=== PATIENT | male | born 1980 | race Caucasian/White ===

== ENCOUNTER 2020-02-09 15:07 | Outpatient (REF) | payer MEDICARE, SELFPAY | END 2020-02-09 15:08 | disposition home or self-care (01) | LOC: HO.LAB 15:07 | PROVIDERS: Visit Provider Internal Medicine | DX: Z20.828 Contact with and (suspected) exposure to other viral communicable diseases (principal) | CPT/HCPCS: C9803; U0003 ==

== ENCOUNTER 2021-02-19 14:32 | Emergency (ER) | payer MEDICARE, SELFPAY ==
--- NOTE | ~2021-02-19 | XR_ITS ---
EXAMINATION: XR CHEST CLINICAL INFORMATION: Chest pain COMPARISON: Chest x-ray 05/20/2017 TECHNIQUE: 2 views of the chest were obtained. FINDINGS: No significant abnormality is noted involving the heart, lungs, mediastinum, bony thorax or soft tissues. XR/XR chest 2V IMPRESSION: Unremarkable examination.
--- NOTE | 2021-02-19 14:42 | ECG_ITS ---
Test Reason : CHEST PAIN Blood Pressure : / mmHG Vent. Rate : 071 BPM Atrial Rate : 071 BPM P-R Int : 144 ms QRS Dur : 100 ms QT Int : 356 ms P-R-T Axes : 029 015 010 degrees QTc Int : 386 ms Normal sinus rhythm Incomplete right bundle branch block Borderline ECG When compared with ECG of 16-NOV-2019 17:50, Incomplete right bundle branch block is now Present Referred By: Delores Gil Electronically Signed By:REEMA DENNY
[2021-02-19 15:00] VITALS: BP 123/69; PULSE 71; RESP 18; TEMP 36.8; O2SAT 97; BMI 29.0
[2021-02-19 16:06] LABS: MANUAL DIFF FLAG NO
[2021-02-19 16:09] LABS: Basophils Absolute Auto 0.1 X10*3/uL (0.0-0.2); Basophils Percent Auto 0.6 % (0-2); Eosinophils Absolute Auto 0.3 X10*3/uL (0.0-0.4); Eosinophils Percent Auto 3.3 % (0-4); Hematocrit 42.5 % (42.0-52.0); Hemoglobin 14.6 g/dl (14.0-18.0); Imm Gran Abs Auto 0.02 X10*3/uL (0.00-0.03); Imm Gran Pct Auto 0.2 % (0.0-0.4); Lymphocytes Absolute Auto 2.2 X10*3/uL (1.2-4.9); Lymphocytes Percent Auto 23.5 % (20-40); Mean Corpuscular HGB Conc 34.4 g/dl (31.0-36.0); Mean Corpuscular Hemoglobin 31.4 pg (27.0-33.0); Mean Corpuscular Volume 91.4 fL (80.0-98.0); Mean Platelet Volume 11.7 fL (9.4-12.4); Monocytes Absolute Auto 0.7 X10*3/uL (0.1-1.2); Monocytes Percent Auto 7.7 % (2-11); Neutrophils Percent Auto 64.7 % (45-73); Platelet Count 248 X10*3/uL (160-400); Red Blood Count 4.65 X10*6/uL (4.60-5.80); White Blood Count 9.3 X10*3/uL (4.8-10.8)
[2021-02-19 16:25] LABS: Anion Gap 12 (12-20); Blood Urea Nitrogen 14 mg/dL (9-16); Calcium 9.6 mg/dL (8.4-10.2); Carbon Dioxide 26 mmol/L (22-29); Chloride 105 mmol/L (96-108); Creatinine Clr Calc Pharmacy 92.9; Estimated Glomerular Filt Rate > 60; Glucose Random 96 mg/dL (60-115); Potassium 4.1 mmol/L (3.3-5.1); Sodium 139 mmol/L (135-145)
[2021-02-19 16:28] LABS: Prothrombin Time 11.5 SEC (9.9-13.0)
[2021-02-19 16:29] LABS: Troponin-I High Sensitivity < 3.5 ng/L (<3.5-35.0)
[2021-02-19 16:31] LABS: D Dimer High Sensitivity < 150 NG/ML
== END 2021-02-19 19:45 | disposition left against medical advice (07) ==
PROVIDERS: Physician Assistant Medical; Emergency Provider Emergency Medicine
DX: R07.9 Chest pain, unspecified (principal)
CPT/HCPCS: 36415; 71046; 80048; 83735; 84484; 85025; 85379; 85610; 93005; 99283

== ENCOUNTER 2021-03-08 15:11 | Emergency (ER) | payer MEDICARE, SELFPAY ==
[2021-03-08 16:26] VITALS: BP 156/70; PULSE 86; RESP 12; TEMP 36.9; O2SAT 98; BMI 29.0
== END 2021-03-08 20:45 | disposition left against medical advice (07) ==
PROVIDERS: Emergency Provider Emergency Medicine
DX: R42 Dizziness and giddiness (principal)
CPT/HCPCS: 99281; 99282

== ENCOUNTER 2022-02-21 10:13 | Outpatient (REF) | payer MEDICARE, SELFPAY ==
[2022-02-21 10:25] LABS: MANUAL DIFF FLAG NO
--- NOTE | 2022-02-21 10:31 | ECG_ITS ---
Test Reason : M54.9 Dorsalgia Blood Pressure : / mmHG Vent. Rate : 085 BPM Atrial Rate : 071 BPM P-R Int : 138 ms QRS Dur : 098 ms QT Int : 364 ms P-R-T Axes : 069 034 021 degrees QTc Int : 433 ms Sinus rhythm with frequent Premature ventricular complexes Otherwise normal ECG When compared with ECG of 19-FEB-2021 14:44, Premature ventricular complexes are now Present Incomplete right bundle branch block is no longer Present Referred By: Lizz Solares Electronically Signed By:AGATA MARRERO MD
[2022-02-21 11:37] LABS: Basophils Absolute Auto 0.1 X10*3/uL (0.0-0.2); Basophils Percent Auto 0.8 % (0-2); Eosinophils Absolute Auto 0.5 X10*3/uL (0.0-0.4); Eosinophils Percent Auto 5.3 % (0-4); Hematocrit 47.6 % (42.0-52.0); Hemoglobin 15.9 g/dl (14.0-18.0); Imm Gran Abs Auto 0.05 X10*3/uL (0.00-0.03); Imm Gran Pct Auto 0.6 % (0.0-0.4); Lymphocytes Absolute Auto 2.5 X10*3/uL (1.2-4.9); Lymphocytes Percent Auto 29.2 % (20-40); Mean Corpuscular HGB Conc 33.4 g/dl (31.0-36.0); Mean Corpuscular Hemoglobin 30.6 pg (27.0-33.0); Mean Corpuscular Volume 91.5 fL (80.0-98.0); Mean Platelet Volume 12.4 fL (9.4-12.4); Monocytes Absolute Auto 0.6 X10*3/uL (0.1-1.2); Monocytes Percent Auto 6.7 % (2-11); Neutrophils Absolute Auto 4.9 x10*3/uL (2.0-8.3); Neutrophils Percent Auto 57.4 % (45-73); Platelet Count 287 X10*3/uL (160-400); Red Cell Distribution Width 13.2 % (11.0-16.0); White Blood Count 8.6 X10*3/uL (4.8-10.8)
[2022-02-21 13:39] LABS: Alanine Aminotransferase 23 U/L (0-40); Albumin Level 4.7 g/dL (3.5-5.0); Alkaline Phosphatase 69 U/L (39-117); Anion Gap 11 (12-20); Aspartate Amino Transferase 22 U/L (5-37); Bilirubin Total 0.4 mg/dL (0.0-1.0); Blood Urea Nitrogen 15 mg/dL (9-16); Calcium 9.4 mg/dL (8.4-10.2); Carbon Dioxide 27 mmol/L (22-29); Chloride 108 mmol/L (96-108); Cholesterol 199 mg/dL; Estimated Glomerular Filt Rate > 60; Glucose Fasting 98 mg/dL (60-99); HDL Cholesterol 37 mg/dL; LDL Cholesterol Calculated 137 mg/dl; Potassium 4.7 mmol/L (3.3-5.1); Sodium 141 mmol/L (135-145); TSH reflex Free T4 1.14 uIU/mL (0.32-4.0); Total Protein 7.4 g/dL (6.5-8.0); Triglycerides 125 mg/dL; Vitamin D 25-OH Total 16.7 ng/mL (>30)
[2022-02-21 13:50] LABS: Folate 8.6 ng/mL (> or = 4.0); Vitamin B12 454 pg/mL (200-900)
== END 2022-02-21 10:14 | disposition home or self-care (01) ==
LOC: HO.LAB 10:13
PROVIDERS: PCP Nurse Practitioner Family; Visit Provider Nurse Practitioner Family
DX: M54.9 Dorsalgia, unspecified (principal); Z76.89 Persons encountering health services in other specified circumstances
CPT/HCPCS: 36415; 80053; 80061; 82306; 82607; 82746; 84443; 85025; 93005

== ENCOUNTER 2022-09-11 13:57 | Outpatient (REF) | payer MEDICARE, SELFPAY ==
--- NOTE | 2022-09-11 14:03 | ECG_ITS ---
Test Reason : R07.9 Chest pain Blood Pressure : / mmHG Vent. Rate : 071 BPM Atrial Rate : 071 BPM P-R Int : 130 ms QRS Dur : 100 ms QT Int : 370 ms P-R-T Axes : 051 032 012 degrees QTc Int : 402 ms Normal sinus rhythm with sinus arrhythmia Normal ECG When compared with ECG of 21-FEB-2022 10:36, Premature ventricular complexes are no longer Present Referred By: Lizz Solares Electronically Signed By:REEMA DENNY
[2022-09-11 16:21] LABS: Cholesterol 200 mg/dL; HDL Cholesterol 38 mg/dL; LDL Cholesterol Calculated 125 mg/dl; Triglycerides 185 mg/dL
[2022-09-11 16:35] LABS: Vitamin D 25-OH Total 24.5 ng/mL (>30)
== END 2022-09-11 13:58 | disposition home or self-care (01) ==
LOC: HO.LAB 13:57
PROVIDERS: Visit Provider Nurse Practitioner Family
DX: R07.9 Chest pain, unspecified (principal); E78.9 Disorder of lipoprotein metabolism, unspecified; E55.9 Vitamin D deficiency, unspecified
CPT/HCPCS: 36415; 80061; 82306; 93005

== ENCOUNTER 2023-04-25 08:42 | Outpatient (AMB) | payer MEDICARE, SELFPAY ==
--- NOTE | 2023-04-25 08:54 | A.OFFVIS_ITS ---
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 Patient reports off and on sharp pain for many months. He states that he gets sharp pains randomly through out the days. 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 Patient states that his pain stays in the lower back area. He is having concerns of neck/shoulder pain that has been going on for a couple months. 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 Comes out of no where, big stabbing/sharp pain, hot/cold, across lower back. Does not radiate to legs. No numbness. No weakness. No bladder/bowel changes. Denies other back injuries. [facility] Surgical History No pertinent past surgical history Family History Mother Dementia CVA (cerebral vascular accident) Father Medical history unknown Social History Housing: House Patient Tobacco Use Status: Former Tobacco user e-Cigarette/Vaping Use: Never Used service: No Current occupational status: employed Current occupation: [employer] Cognitive needs: No Hearing needs: No Vision needs: No Review of Systems Const All systems reviewed & are unremarkable except as noted in HPI and below Physical Exam Vital Signs: BMI result Body Mass Index 28.9 Constitutional: Patient appears to be in no acute distress, well nourished and well developed. Patient was appropriately conversant and oriented. Good historian. MSK: No specific abnormalities found on inspection of the spine and all extremities. Tightness noted on upper trapezius and rhomboids, left. No pain with palpation over the lumbar area. No specific tenderness on facet or spinous processes or SI joints. No GT tenderness. Cervical range of motion was full. Lumbar ROM was full. Bilateral hip, knee and ankle ROM WNL. No ligamentous laxity or crepitance. No increased effusion. Straight-leg raising test negative. FABERE test negative. Strength is 5/5 in all muscle groups tested. No increased tone noted. Neurological: Neurologic examination of the upper and lower extremities was nonfocal with intact sensation, muscle stretch reflexes and without focal motor deficits . Pyle?s negative bilaterally. Babinski was down going bilaterally. Clonus was negative. Gait is non-antalgic without loss of balance. Results Reviewed Results Reviewed: I independently reviewed the results of the following: Lumbar x-rays did not show any disc space narrowing, question mild endplates spurring. I reviewed records from the following: PCP Assessment & Plan Assessment & Plan (1) Myofascial pain: Code(s): M79.18 - Myalgia, other site Plan He was referred for lower back pain but he also has left upper back pain. There was no sign of cervical or lumbar radiculopathy or myelopathy on exam. Suspect myofascial pain. No signs of rotator cuff issue on shoulder as well. Sending him back for cervical spine and left shoulder x-rays. Highly recommend starting physical therapy to work on myofascial release, both for upper and lower back, trapezius and rhomboids. Patient agreeable to start. Referral placed. Assessment and plan discussed with patient, and patient was agreeable. All questions were answered thoroughly. Follow-up 4-6 weeks, after PT. Call sooner if needed. Wilma Moulton MD, SHAHAB Board Certified, [place] Board [employer] and Rehabilitation (ABPMR) Board Certified, [place] Board [employer] Electrodiagnostic Medicine (ABEM) Orders: Orders XR lumbar spine 2-3V Today M54.9 - Dorsalgia, unspecified XR shoulder LT min 2V Today F32.A - Depression, unspecified, F41.9 - Anxiety disorder, unspecified, M25.519 - Pain in unspecified shoulder, M79.18 - Myalgia, other site XR cervical spine 3V Today F32.A - Depression, unspecified, F41.9 - Anxiety disorder, unspecified, M25.519 - Pain in unspecified shoulder, M79.18 - Myalgia, other site PT Evaluation and Treatment Today F32.A - Depression, unspecified, F41.9 - Anxiety disorder, unspecified, M25.519 - Pain in unspecified shoulder, M79.18 - Myalgia, other site Coding Level of Care Code New Pt Level 4 (32232) Diagnoses Myofascial pain M79.18
[2023-04-25 08:58] VITALS: BMI 28.9
== END 2023-04-25 09:48 | disposition home or self-care (01) ==
LOC: HO.HOS 08:42
PROVIDERS: Visit Provider Physical Medicine & Rehabilitation
DX: M79.18 Myalgia, other site (principal)
CPT/HCPCS: 99204

== ENCOUNTER 2023-04-25 09:19 | Outpatient (REF) | payer MEDICARE, MEDICAID, SELFPAY ==
--- NOTE | ~2023-04-25 | XR_ITS ---
EXAMINATION: XR SHOULDER, LEFT CLINICAL INFORMATION: Pain in unspecified shoulder COMPARISON: None available. TECHNIQUE: AP neutral and scapular Y views of the left shoulder. FINDINGS: The bones are intact. No fracture. Glenohumeral and acromioclavicular alignment is anatomic with normal joint space. Small nonspecific cystic focus is seen within the distal clavicle. No abnormal soft tissue calcifications. XR/XR shoulder LT min 2V IMPRESSION: No acute bony abnormality.
--- NOTE | ~2023-04-25 | XR_ITS ---
EXAMINATION: XR CERVICAL SPINE CLINICAL INFORMATION: Pain in unspecified shoulder COMPARISON: Cervical spine 09/06/2006 TECHNIQUE: 4 views of the cervical spine were obtained. FINDINGS: The tip of the odontoid is obscured on the open-mouth view. There is no fracture or subluxation. Prevertebral soft tissues are within normal limits. There is straightening of the usual cervical lordosis which can be seen with muscle spasm or due to patient positioning. There is moderate disc space narrowing with marginal osteophyte formation at C6-C7. XR/XR cervical spine 3V IMPRESSION: 1. Degenerative disc disease at C6-C7. 2. Straightening of the usual cervical lordosis which can be seen with muscle spasm or due to patient positioning.
--- NOTE | ~2023-04-25 | XR_ITS ---
EXAMINATION: XR LUMBOSACRAL SPINE CLINICAL INFORMATION: Dorsalgia. COMPARISON: Lumbar spine radiographs dated 04/06/2018. TECHNIQUE: AP and lateral views of the lumbar spine and lateral view of the lumbosacral junction. FINDINGS: Vertebral body heights and alignment are normal. The lumbar disc spaces are well-maintained. No acute fracture or spondylolisthesis is seen. There is multi-level mild anterior lumbar spondylosis. The posterior elements are intact. The paravertebral soft tissues are unremarkable. XR/XR lumbar spine 2-3V IMPRESSION: 1. No acute fracture or spondylolisthesis is seen. 2. The lumbar disc spaces are well-maintained. 3. There is multi-level mild lumbar spondylosis.
== END 2023-04-25 09:20 | disposition home or self-care (01) ==
LOC: HO.HOSX 09:19
PROVIDERS: Visit Provider Physical Medicine & Rehabilitation
DX: M54.9 Dorsalgia, unspecified (principal); M25.512 Pain in left shoulder; M79.18 Myalgia, other site; F41.9 Anxiety disorder, unspecified; F32.A Depression, unspecified
CPT/HCPCS: 72040; 72100; 73030; 99202

== ENCOUNTER 2023-05-16 11:35 | Outpatient (AMB) | payer MEDICARE, MEDICAID, SELFPAY ==
--- NOTE | 2023-05-16 09:59 | A.OFFVIS_ITS ---
Intake Intake Visit Reasons: OV-lower back pain, ?MRI Intake Note: Turner is a 43 year old male who presents to the office today for an office visit for lower back pain, ? MRI. Pt states this pain has been going on for about 2 months. Pt denies any injury to his back. He states he has pain more on his left side of his neck and back. He states sometimes he will also have sharp stabbing pain in his neck that radiates down his left arm. He also states that his left arm gets tingling sensations. He states he is currently in PT and has had 1 PT appt a few days ago. 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 Comes out of no where, big stabbing/sharp pain, hot/cold, across lower back. Does not radiate to legs. No numbness. No weakness. No bladder/bowel changes. Denies other back injuries. Patient asked to be seen today. Asking about ordering an MRI. He has gone to only one PT appointment/evaluation. He denies any change or worsening in his symptoms. Continues to have neck pain, left sided, going to left shoulder. Lower back pain, going to left leg. Denies numbness or weakness. No change in bladder/bowel. No nweakness. [facility] Surgical History No pertinent past surgical history Family History Mother Dementia CVA (cerebral vascular accident) Father Medical history unknown Social History Housing: House Patient Tobacco Use Status: Former Tobacco user e-Cigarette/Vaping Use: Never Used service: No Current occupational status: employed Current occupation: [employer] Cognitive needs: No Hearing needs: No Vision needs: No Physical Exam Constitutional: Patient appears to be in no acute distress, well nourished and well developed. Patient was appropriately conversant and oriented. Good historian. MSK: No specific abnormalities found on inspection of the spine and all extremities. Tightness noted on upper trapezius and rhomboids, left. Palpable small lymph node on right lateral neck, less than 0.5 cm. No pain with palpation over the lumbar area. No specific tenderness on facet or spinous processes or SI joints. No GT tenderness. Cervical range of motion was full. Lumbar ROM was full. Bilateral hip, knee and ankle ROM WNL. No ligamentous laxity or crepitance. No increased effusion. Strength is 5/5 in all muscle groups tested. No increased tone noted. Neurological: Neurologic examination of the upper and lower extremities was nonfocal with int act sensation, muscle stretch reflexes and without focal motor deficits . Pyle?s negative bilaterally. Babinski was down going bilaterally. Clonus was negative. Gait is non-antalgic without loss of balance. Results Reviewed Results Reviewed: Ordering Physician: Wilma Martin Date of Service: 04/25/23 Procedure(s): XR lumbar spine 2-3V Accession Number(s): [id number] cc: Wilma Martin~ EXAMINATION: XR LUMBOSACRAL SPINE CLINICAL INFORMATION: Dorsalgia. COMPARISON: Lumbar spine radiographs dated 04/06/2018. TECHNIQUE: AP and lateral views of the lumbar spine and lateral view of the lumbosacral junction. FINDINGS: Vertebral body heights and alignment are normal. The lumbar disc spaces are well-maintained. No acute fracture or spondylolisthesis is seen. There is multi-level mild anterior lumbar spondylosis. The posterior elements are intact. The paravertebral soft tissues are unremarkable. XR/XR lumbar spine 2-3V IMPRESSION: 1. No acute fracture or spondylolisthesis is seen. 2. The lumbar disc spaces are well-maintained. 3. There is multi-level mild lumbar spondylosis. Ordering Physician: Wilma Martin Date of Service: 04/25/23 Procedure(s): XR cervical spine 3V Accession Number(s): [id number] cc: Wilma Martin~ EXAMINATION: XR CERVICAL SPINE CLINICAL INFORMATION: Pain in unspecified shoulder COMPARISON: Cervical spine 09/06/2006 TECHNIQUE: 4 views of the cervical spine were obtained. FINDINGS: The tip of the odontoid is obscured on the open-mouth view. There is no fracture or subluxation. Prevertebral soft tissues are within normal limits. There is straightening of the usual cervical lordosis which can be seen with muscle spasm or due to patient positioning. There is moderate disc space narrowing with marginal osteophyte formation at C6-C7. XR/XR cervical spine 3V IMPRESSION: 1. Degenerative disc disease at C6-C7. 2. Straightening of the usual cervical lordosis which can be seen with muscle spasm or due to patient positioning. Ordering Physician: Wilma Martin Date of Service: 04/25/23 Procedure(s): XR shoulder LT min 2V Accession Number(s): [id number] cc: Wilma Martin~ EXAMINATION: XR SHOULDER, LEFT CLINICAL INFORMATION: Pain in unspecified shoulder COMPARISON: None available. TECHNIQUE: AP neutral and scapular Y views of the left shoulder. FINDINGS: The bones are intact. No fracture. Glenohumeral and acromioclavicular alignment is anatomic with normal joint space. Small nonspecific cystic focus is seen within the distal clavicle. No abnormal soft tissue calcifications. XR/XR shoulder LT min 2V IMPRESSION: No acute bony abnormality. Assessment & Plan Assessment & Plan (1) Myofascial pain: Code(s): M79.18 - Myalgia, other site (2) Cervical spondylosis: Code(s): M47.812 - Spondylosis without myelopathy or radiculopathy, cervical region (3) Chronic back pain: Code(s): M54.9 - Dorsalgia, unspecified; G89.29 - Other chronic pain Plan Today no sign of cervical or lumbar radiculopathy or myelopathy on exam. No signs of rotator cuff issue on shoulder as well. Encouraged to continue physical therapy to work on myofascial release, both for upper and lower back, trapezius and rhomboids. Patient agreeable. Next appointment on June 05. If not better, we will consider further imaging as necessary. Discussed what to watch out for. Can call if symptoms worsen. Assessment and plan discussed with patient, and patient was agreeable. All questions were answered thoroughly. Wilma Moulton MD, SHAHAB Board Certified, [place] Board of Physical Medicine and Rehabilitation (ABPMR) Board Certified, [place] Board of Electrodiagnostic Medicine (ABEM) Coding Level of Care Code Est Pt Level 3 (42098) Diagnoses Myofascial pain M79.18 Cervical spondylosis M47.812 Chronic back pain M54.9; G89.29
== END 2023-05-16 12:04 | disposition home or self-care (01) ==
LOC: HO.HOS 11:36
PROVIDERS: Visit Provider Physical Medicine & Rehabilitation
DX: M79.18 Myalgia, other site (principal); M47.812 Spondylosis without myelopathy or radiculopathy, cervical region; M54.9 Dorsalgia, unspecified; G89.29 Other chronic pain
CPT/HCPCS: 99213

== ENCOUNTER → 2023-05-16 11:35 | Outpatient (BNVA) | payer MEDICARE, SELFPAY | PROVIDERS: Visit Provider Physical Medicine & Rehabilitation | DX: M79.18 Myalgia, other site (principal); M47.812 Spondylosis without myelopathy or radiculopathy, cervical region; M54.9 Dorsalgia, unspecified; G89.29 Other chronic pain | CPT/HCPCS: 99212 ==

== ENCOUNTER 2023-06-06 08:30 | Outpatient (AMB) | payer MEDICARE, SELFPAY ==
--- NOTE | 2023-06-06 08:54 | A.OFFVIS_ITS ---
Intake Intake Visit Reasons: OV-lower back pain-follow up Intake Note: Turner is a 43 year old male who presents to the office today for a follow up for his lower back pain. Patient reports that he is doing well in P.T. He states that he still has discomfort and mild pain in his lower back and neck. 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 Comes out of no where, big stabbing/sharp pain, hot/cold, across lower back. Does not radiate to legs. No numbness. No weakness. No bladder/bowel changes. Denies other back injuries. He has been going to PT without much relief. Neck pain has continued to be bothersome. Continues to have neck pain, left sided, going to left shoulder. Lower back pain, going to left leg. Denies numbness or weakness. No change in bladder/bowel. No weakness. [facility] Surgical History No pertinent past surgical history Family History Mother Dementia CVA (cerebral vascular accident) Father Medical history unknown Social History Housing: House Patient Tobacco Use Status: Former Tobacco user e-Cigarette/Vaping Use: Never Used service: No Current occupational status: employed Current occupation: [employer] Cognitive needs: No Hearing needs: No Vision needs: No Physical Exam Constitutional: Patient appears to be in no acute distress, well nourished and well developed. Patient was appropriately conversant and oriented. Good historian. MSK: No specific abnormalities found on inspection of the spine and all extremities. Tightness noted on upper trapezius and rhomboids, left. No pain with palpation over the lumbar area. No specific tenderness on facet or spinous processes or SI joints. No GT tenderness. Cervical range of motion was full. Lumbar ROM was full. Bilateral hip, knee and ankle ROM WNL. No ligamentous laxity or crepitance. No increased effusion. Strength is 5/5 in all muscle groups tested. No increased tone noted. Neurological: Neurologic examination of the upper and lower extremities was nonfocal with intact sensation, muscle stretch reflexes and without focal motor deficits . Pyle?s negative bilaterally. Babinski was down going bilaterally. Clonus was negative. Gait is non-antalgic without loss of balance. Results Reviewed Results Reviewed: Ordering Physician: Wilma Martin Date of Service: 04/25/23 Procedure(s): XR lumbar spine 2-3V Accession Number(s): [id number] cc: Wilma Martin~ EXAMINATION: XR LUMBOSACRAL SPINE CLINICAL INFORMATION: Dorsalgia. COMPARISON: Lumbar spine radiographs dated 04/06/2018. TECHNIQUE: AP and lateral views of the lumbar spine and lateral view of the lumbosacral junction. FINDINGS: Vertebral body heights and alignment are normal. The lumbar disc spaces are well-maintained. No acute fracture or spondylolisthesis is seen. There is multi-level mild anterior lumbar spondylosis. The posterior elements are intact. The paravertebral soft tissues are unremarkable. XR/XR lumbar spine 2-3V IMPRESSION: 1. No acute fracture or spondylolisthesis is seen. 2. The lumbar disc spaces are well-maintained. 3. There is multi-level mild lumbar spondylosis. Ordering Physician: Wlima Martin Date of Service: 04/25/23 Procedure(s): XR cervical spine 3V Accession Number(s): [id number] cc: Wilma Martin~ EXAMINATION: XR CERVICAL SPINE CLINICAL INFORMATION: Pain in unspecified shoulder COMPARISON: Cervical spine 09/06/2006 TECHNIQUE: 4 views of the cervical spine were obtained. FINDINGS: The tip of the odontoid is obscured on the open-mouth view. There is no fracture or subluxation. Prevertebral soft tissues are within normal limits. There is straightening of the usual cervical lordosis which can be seen with muscle spasm or due to patient positioning. There is moderate disc space narrowing with marginal osteophyte formation at C6-C7. XR/XR cervical spine 3V IMPRESSION: 1. Degenerative disc disease at C6-C7. 2. Straightening of the usual cervical lordosis which can be seen with muscle spasm or due to patient positioning. Ordering Physician: Wilma Martin Date of Service: 04/25/23 Procedure(s): XR shoulder LT min 2V Accession Number(s): [id number] cc: Wilma Martin~ EXAMINATION: XR SHOULDER, LEFT CLINICAL INFORMATION: Pain in unspecified shoulder COMPARISON: None available. TECHNIQUE: AP neutral and scapular Y views of the left shoulder. FINDINGS: The bones are intact. No fracture. Glenohumeral and acromioclavicular alignment is anatomic with normal joint space. Small nonspecific cystic focus is seen within the distal clavicle. No abnormal soft tissue calcifications. XR/XR shoulder LT min 2V IMPRESSION: No acute bony abnormality. Assessment & Plan Assessment & Plan (1) Radiculitis of left cervical region: Code(s): M54.12 - Radiculopathy, cervical region (2) Cervical spondylosis: Code(s): M47.812 - Spondylosis without myelopathy or radiculopathy, cervical region (3) Chronic back pain: Code(s): M54.9 - Dorsalgia, unspecified; G89.29 - Other chronic pain Qualifiers: Sciatica presence: without sciatica Back pain location: low back pain Back pain laterality: midline Qualified Code(s): M54.50 - Low back pain, unspecified; G89.29 - Other chronic pain (4) Myofascial pain: Code(s): M79.18 - Myalgia, other site Plan Main concern is left cervical radiculitis. Has not improved since PT. Patient had undergone adequate conservative management including [PT] without improvement of condition. It would be reasonable to obtain further imaging such as MRI cervical spine. An MRI would help rule out any serious condition, guide treatment and assess prognosis for recovery. Specifically ruling out left C5-6 disc herniation. Recommendations for injection to follow after MRI. Assessment and plan discussed with patient, and patient was agreeable. All questions were answered thoroughly. Wilma Moulton MD, SHAHAB Board Certified, [place] Board [employer] and Rehabilitation (ABPMR) Board Certified, [place] Board [employer] Electrodiagnostic [employer] (ABEM) Orders: Orders MR cervical spine wo con Today M47.812 - Spondylosis without myelopathy or radiculopathy, cervical region, M54.12 - Radiculopathy, cervical region Coding Level of Care Code Est Pt Level 4 (30520) Diagnoses Radiculitis of left cervical region M54.12 Cervical spondylosis M47.812 Chronic midline low back pain without sciatica M54.50; G89.29 Sciatica presence: without sciatica Back pain location: low back pain Back pain laterality: midline Myofascial pain M79.18
== END 2023-06-06 09:12 | disposition home or self-care (01) ==
PROVIDERS: Visit Provider Physical Medicine & Rehabilitation
DX: M54.12 Radiculopathy, cervical region (principal); M47.812 Spondylosis without myelopathy or radiculopathy, cervical region; M54.50 Low back pain, unspecified; G89.29 Other chronic pain; M79.18 Myalgia, other site
CPT/HCPCS: 99214

== ENCOUNTER → 2023-06-06 08:30 | Outpatient (BNVA) | payer MEDICARE, MEDICAID, SELFPAY | PROVIDERS: Visit Provider Physical Medicine & Rehabilitation | DX: M47.22 Other spondylosis with radiculopathy, cervical region (principal); M54.50 Low back pain, unspecified; G89.29 Other chronic pain; M79.18 Myalgia, other site | CPT/HCPCS: 99212 ==

== ENCOUNTER 2023-06-06 11:00 | Outpatient (RCR) | payer MEDICARE, SELFPAY ==
--- NOTE | 2023-05-14 11:02 | MHC.PT.EP ---
[facility] [place] Office [place] Office [place] Office [address] Mj Gooden [address] [phone] F: [phone] F: [phone] F: [phone] F: [phone] Physical Therapy Plan of Care Date of Evaluation: 05/14/23 Date of Surgery: NA Diagnosis: Pain in unspecified shoulder Myalgia, other site Anxiety disorder, unspecified Assessment: Turner is a 43 year old male who is referred to PT for Pain in unspecified shoulder, Myalgia, other site, Anxiety disorder, unspecified . He reports of having sudden onset of pain on the L side of the neck about 4 months back. He denies any trauma or falls. In addition he also reports of having pain in R side and per pt the pain radiates to his head and eyes and and down L UE. On PT examination he presents with TTP over L UT, L levator scap, L shoulder posterior joint line, 8/10 pain in neck with sitting, driving, L SL, decreased cervical ROM, pain with shoulder ROM, decreased cervical muscle strength, and altered posture. He lives with family. He is independent with all ADLS but has pain with them. 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 He would benefit from skilled PT to address the aforementioned impairments and improve tolerance to functional activities. Frequency and Duration: The patient will be seen 2/week for 5 weeks. Short Term Goals: 1. Pt will have 50% decrease in pain which will enable him to sleep through the night in 2 weeks. 2. Pt will be able to move his neck through all planes of motion without pain which will enable him to use is upper body for dressing without pain in 3 weeks. Senior Group Manager Goals: 1. Pt will demonstrate an increase in muscle strength by 1 grade and good awareness of sitting posture which will enable him to get through his work without pain in 5 weeks. 2. Pt will be independent with all HEP for symptom management and maintenance following d/c in 5 weeks. Treatment Plan: Modalities to reduce pain, spasms and effusion. Manual therapy to restore motion and function. Therapeutic exercise to improve strength and flexibility. Neuromuscular re-education for posture and balance. Therapeutic activities to return to functional activities of daily living. Electronically signed by: Nelida Jones PT DPT Please sign and return to therapist. Thank you for your referral.
--- NOTE | 2023-08-17 09:33 | MHC.PT.DC ---
[facility] [place] Office [place] Office [place] Office [address] Mj Gooden [address] [phone] F: [phone] F: [phone] F: [phone] F: [phone] Physical Therapy Discharge Report Diagnosis: Pain in unspecified shoulder Myalgia, other site Anxiety disorder, unspecified Date of Surgery: NA Date of Evaluation: 05/14/23 Date of Discharge: 08/17/23 Treatments to Date: 7 Cancellations to Date: 1 No Shows to Date: 2 Discharge Status: Recommend MD Follow-up Discharge Summary: Per last treatment note on 06/06/23: Turner arrived stating his neck pain of something being pinched has been unchanged with PT. He followed with his physician prior to today's appointment and requested an MRI for his neck. Per pt he will be having any MRI for his neck sometime soon. He otherwise reports of feeling fine in his UE. He reports of having some relief in UE symptoms with strength exercises. Turner was challenged with B UE and scap strengthening exercises today as well. He denied having pain with any exercise. Anticipate d/c from PT in next visit. Turner was in agreement with the plan. No adverse response noted to any exercise. Electronically signed by: Patricia Ayers PT, DPT Please sign and return to therapist. Thank you for your referral.
== END 2023-08-17 09:33 | disposition home or self-care (01) ==
LOC: HO.PT 11:00
PROVIDERS: Visit Provider Physical Medicine & Rehabilitation
DX: M25.512 Pain in left shoulder (principal); M79.18 Myalgia, other site
CPT/HCPCS: 97110; 97112; 97140; 97161

== ENCOUNTER 2023-06-13 13:53 | Outpatient (AMB) | payer MEDICARE, SELFPAY ==
--- NOTE | 2023-06-13 13:58 | A.OFFVIS_ITS ---
Intake Vital Signs 06/13/23 13:59 Height 5 ft 6 in Weight 174 lb BMI 28.1 BP 131/84 Blood Pressure Location Rt brachial Position Sitting Pulse 73 Intake Visit Reasons: Lump back of neck Intake Note: Patient's daughter scheduled appointment for lump on Lt post neck. Present for 6-7m. Patient c/o: enlarging. Denies bleeding. No hx of skin ca. 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 He has had this several months time. It is not increasing in size is not symptomatic but he just would like to have evaluated. He has no such lesions elsewhere. He denies any fever, chills, night sweats, weight loss. Otherwise very healthy male. Chart was reviewed and patient evaluated [facility] Surgical History No pertinent past surgical history Family History Mother Dementia CVA (cerebral vascular accident) Father Medical history unknown Social History (Updated 06/13/23 @ 14:04 by ANITA Mera) Housing: House Alcohol intake: never Patient Tobacco Use Status: Former Tobacco user e-Cigarette/Vaping Use: Never Used service: No Current occupational status: employed Current occupation: [employer] Cognitive needs: No Hearing needs: No Vision needs: No Physical Exam Vital Signs: Last Vital Signs Pulse 73 06/13/23 13:59 BP 131/84 06/13/23 13:59 BMI result Body Mass Index 28.1 HEENT Other: Patient has a subcentimeter right posterior triangle very small lymph node. No other cervical, periclavicular, axillary or groin adenopathy bilaterally demonstrated. Chest Other: Chest breath sounds bilaterally GI Other: Abdomen soft, benign Extrem Other: Extremities all 4 grossly intact Assessment & Plan Assessment & Plan (1) Lymph node enlargement: Code(s): R59.9 - Enlarged lymph nodes, unspecified Plan Patient was reassured. The present time, no further interventions or investigations are warranted. Patient is to keep an eye on this process and should increase in size, become more symptomatic, or developed any such lesions elsewhere, he has been instructed to call the office. Otherwise he will follow- up p.r.n.. All questions answered. Coding Level of Care Code New Pt Level 4 (29132) Diagnoses Lymph node enlargement R59.9
[2023-06-13 13:59] VITALS: BP 131/84; PULSE 73; BMI 28.1
== END 2023-06-13 14:32 | disposition home or self-care (01) ==
PROVIDERS: Visit Provider Surgery
DX: R59.9 Enlarged lymph nodes, unspecified (principal)
CPT/HCPCS: 99204

== ENCOUNTER → 2023-06-13 13:53 | Outpatient (BNVA) | payer MEDICARE, MEDICAID, SELFPAY | PROVIDERS: Visit Provider Surgery | DX: R59.9 Enlarged lymph nodes, unspecified (principal) | CPT/HCPCS: 99202 ==

== ENCOUNTER 2023-07-23 17:58 | Outpatient (REF) | payer MEDICARE, SELFPAY ==
--- NOTE | ~2023-07-23 | MR_ITS ---
MR CERVICAL SPINE WITHOUT CONTRAST CLINICAL INFORMATION: Spondylosis without myelopathy or radiculopathy. COMPARISON: Cervical spine radiographs 02/23/2024. TECHNIQUE: MRI of the cervical spine was obtained using routine sequences without contrast. FINDINGS: Straightening of the cervical lordosis. The vertebral body heights are maintained. There is mild disc volume loss at C3-C4 and C6-C7. The remaining disc volumes are maintained. There is no bone marrow edema. There are no acute fractures. The craniocervical junction is unremarkable. Cervical arterial flow voids are preserved. There are no significant extraspinal soft tissue findings. No cord signal changes accounting for artifact. The partially imaged intracranial compartment is unremarkable. C2-C3: A small shallow central disc protrusion mildly narrows the central canal. There is no foraminal stenosis. C3-C4: A small central disc protrusion associated with an annular fissure flattens the ventral cord and results in mild to moderate central canal stenosis. Bilateral facet arthropathy. No significant foraminal stenosis. C4-C5: A small shallow central disc protrusion flattens the ventral cord resulting in mild central canal stenosis. Bilateral facet arthropathy. No foraminal stenosis. C5-C6: A shallow central disc protrusion slightly flattens the ventral cord and mildly narrows the central canal. Right-sided uncovertebral joint spurring and facet arthropathy result in mild right-sided foraminal encroachment. C6-C7: Left greater then right lateral disc osteophyte protrusions resulting in severe left and moderate to severe right foraminal stenosis with compression of the exiting left greater then right C7 nerve roots. A left paracentral disc osteophyte protrusion mildly narrows the central canal and partially effaces the left axillary recess. C7-T1: Disc contour is normal. No central canal stenosis and no foraminal stenosis. MR/MR cervical spine wo con IMPRESSION: - At C6-C7, there are left greater than right lateral disc osteophyte protrusions resulting in severe left and moderate to severe right foraminal stenosis with compression of the exiting left greater then right C7 nerve roots. A left paracentral disc osteophyte protrusion mildly narrows the central canal and partially effaces the left axillary recess. - Small shallow central disc protrusions at C4-C5 and C5-C6 slightly flatten the ventral cord and mildly narrow the central canal at both of these levels. - At C3-C4, a small central disc protrusion associated with an annular fissure flattens the ventral cord and results in mild to moderate central canal stenosis.
== END 2023-07-23 17:59 | disposition home or self-care (01) ==
LOC: HO.MRI 17:58
PROVIDERS: PCP Family Medicine; Visit Provider Physical Medicine & Rehabilitation
DX: M47.812 Spondylosis without myelopathy or radiculopathy, cervical region (principal); M54.12 Radiculopathy, cervical region
CPT/HCPCS: 72141

== ENCOUNTER 2024-05-02 13:50 | Emergency (ER) | payer MEDICARE, SELFPAY ==
--- NOTE | ~2024-05-02 | CT_ITS ---
EXAMINATION: CT HEAD WITHOUT IV CONTRAST HISTORY: left eye vision loss. TECHNIQUE: Unenhanced helical CT of the head was performed per standard departmental protocol. Coronal and sagittal reformats of the head were also evaluated. One or more of the following techniques was used for dose reduction: Automated exposure control, adjustment of the mA and/or kV according to patient size, use of iterative reconstruction technique. DLP: 652 mGy-cm COMPARISON: Comparison is made with the prior examination dated 11/24/2018. FINDINGS: BRAIN: The brain parenchyma is unremarkable. There is normal huang/white differentiation. The ventricular system is normal in size and configuration. There is no mass effect or midline shift. No intra- or extra-axial fluid collections are identified. SINUSES: There is mucosal thickening in the bilateral frontal, ethmoid, and sphenoid sinuses. The mastoid air cells and middle ear cavities are well pneumatized. ORBITS: The visualized orbits are unremarkable. BONES/SOFT TISSUES: The extracranial soft tissues are unremarkable. The calvarium is intact. No suspicious lytic or sclerotic lesions. CT/CT head/brain wo IV con IMPRESSION: No acute intracranial abnormality. Electronically signed by: Lane Palomares MD 05/02/2024 03:38 PM [facility]
[2024-05-02 14:29] VITALS: BP 139/88; PULSE 89; RESP 16; TEMP 37.1; O2SAT 97; BMI 26.5
--- NOTE | 2024-05-02 14:34 | ED_ITS ---
HPI - General Adult General Chief complaint: Eye Problems Stated complaint: l eye problem Related Data Previous Rx's ?Medication ?Instructions ?Recorded cholecalciferol (vitamin D3) 50 50 mcg PO DAILY #90 tabs 09/25/22 mcg (2,000 unit) tablet Allergies Allergy/AdvReac Type Severity Reaction Status Date / Time bee pollen [BEE STINGS] Allergy Unknown SWELLING Verified 05/02/24 14:33 PMFSH Past Medical History Surgical History No pertinent past surgical history Family History Family History Mother Dementia CVA (cerebral vascular accident) Father Medical history unknown Social History Social History (Updated 06/13/23 @ 14:04 by ANITA Mera) Housing: House Alcohol intake: never Patient Tobacco Use Status: Former Tobacco user e-Cigarette/Vaping Use: Never Used Advance Directives: No Advance Directives Information Provided: No service: No Current occupational status: employed Current occupation: [employer] Cognitive needs: No Hearing needs: No Vision needs: No Physical Exam ED Vital Signs: Vital Signs - 24 hr 05/02/24 14:29 Temperature 98.7 F Pulse Rate 89 Respiratory Rate 16 Blood Pressure 139/88 Pulse Oximetry 97 Oxygen Delivery Method Room Air BMI result Body Mass Index 26.5 Course Course Course Narrative: RME, this is a rapid medical exam performed by Diego Mandel please refer to primary provider for complete H&P- 44-year-old male presents for evaluation of neck pain and left eye vision loss. The patient reports he has been having neck pain for the last 7 months or so. He had a cervical spine MRI in July of last year. However over the last month he has had vision loss in the left eye only. He reports that he has a central area that ?I only see black out of there. ? Pupils are equal, round and reactive. Plan for labs, CT scan of the brain Medical Decision Making Lab Data 05/02/24 16:28 05/02/24 16:28 Labs: Lab Results 05/02/24 Range/Units 16:28 WBC 10.2 (4.8-10.8) X10*3/uL RBC 4.92 (4.60-5.80) X10*6/uL Hgb 15.3 (14.0-18.0) g/dl Hct 44.7 (42.0-52.0) % MCV 90.9 (80.0-98.0) fL MCH 31.1 (27.0-33.0) pg MCHC 34.2 (31.0-36.0) g/dl RDW 13.2 (11.0-16.0) % Plt Count 261 (160-400) X10*3/uL MPV 11.8 (9.4-12.4) fL Immature Gran % (Auto) 0.4 (0.0-0.4) % Neut % (Auto) 65.5 (45-73) % Lymph % (Auto) 25.4 (20-40) % [place] % (Auto) 5.9 (2-11) % Eos % (Auto) 2.0 (0-4) % Baso % (Auto) 0.8 (0-2) % Lymph # (Auto) 2.6 (1.2-4.9) X10*3/uL [place] # (Auto) 0.6 (0.1-1.2) X10*3/uL Eos # (Auto) 0.2 (0.0-0.4) X10*3/uL Baso # (Auto) 0.1 (0.0-0.2) X10*3/uL Abs Immat Gran (auto) 0.04 H (0.00-0.03) X10*3/uL Absolute Neuts (auto) 6.7 (2.0-8.3) x10*3/uL Absolute Nucleated RBC 0.000 (0.0-0.012) X10*3/uL Nucleated RBC % (auto) 0.0 (0.0-0.2) /100WBC PT 11.0 (10.9-12.4) SEC INR 0.9 (0.9-1.1) Sodium 139 (135-145) mmol/L Potassium 4.0 (3.3-5.1) mmol/L Chloride 106 (96-108) mmol/L Carbon Dioxide 26 (22-29) mmol/L Anion Gap 11 L (12-20) BUN 15 (9-16) mg/dL Creatinine 1.01 (0.5-1.4) mg/dL Estim Creat Clear Calc 84.2 Estimated GFR > 60 Random Glucose 83 (60-115) mg/dL Calcium 9.3 (8.4-10.2) mg/dL Total Bilirubin 0.3 (0.0-1.0) mg/dL AST 24 (5-37) U/L ALT 15 (0-40) U/L Alkaline Phosphatase 74 (39-117) U/L Total Protein 8.0 (6.5-8.0) g/dL Albumin 4.7 (3.5-5.0) g/dL Lipase 26 (8-78) U/L Discharge Plan Discharge Clinical Impression: Alteration in vision Patient Disposition: Left W/O Completing Treatment Prescriptions: No Action cholecalciferol (vitamin D3) 50 mcg (2,000 unit) tablet 50 mcg PO DAILY Qty: 90 1RF Discharge Date/Time: 05/02/24 21:26
[2024-05-02 16:47] LABS: MANUAL DIFF FLAG NO
[2024-05-02 16:48] LABS: Basophils Absolute Auto 0.1 X10*3/uL (0.0-0.2); Basophils Percent Auto 0.8 % (0-2); Eosinophils Absolute Auto 0.2 X10*3/uL (0.0-0.4); Hematocrit 44.7 % (42.0-52.0); Hemoglobin 15.3 g/dl (14.0-18.0); Imm Gran Abs Auto 0.04 X10*3/uL (0.00-0.03); Imm Gran Pct Auto 0.4 % (0.0-0.4); Lymphocytes Absolute Auto 2.6 X10*3/uL (1.2-4.9); Lymphocytes Percent Auto 25.4 % (20-40); Mean Corpuscular HGB Conc 34.2 g/dl (31.0-36.0); Mean Corpuscular Hemoglobin 31.1 pg (27.0-33.0); Mean Corpuscular Volume 90.9 fL (80.0-98.0); Mean Platelet Volume 11.8 fL (9.4-12.4); Monocytes Absolute Auto 0.6 X10*3/uL (0.1-1.2); Monocytes Percent Auto 5.9 % (2-11); Neutrophils Absolute Auto 6.7 x10*3/uL (2.0-8.3); Neutrophils Percent Auto 65.5 % (45-73); Platelet Count 261 X10*3/uL (160-400); Red Blood Count 4.92 X10*6/uL (4.60-5.80); Red Cell Distribution Width 13.2 % (11.0-16.0); White Blood Count 10.2 X10*3/uL (4.8-10.8)
[2024-05-02 16:54] LABS: INTERNATIONAL NORM RATIO 0.9 (0.9-1.1)
[2024-05-02 17:10] LABS: Alanine Aminotransferase 15 U/L (0-40); Albumin Level 4.7 g/dL (3.5-5.0); Alkaline Phosphatase 74 U/L (39-117); Anion Gap 11 (12-20); Aspartate Amino Transferase 24 U/L (5-37); Bilirubin Total 0.3 mg/dL (0.0-1.0); Blood Urea Nitrogen 15 mg/dL (9-16); Calcium 9.3 mg/dL (8.4-10.2); Carbon Dioxide 26 mmol/L (22-29); Chloride 106 mmol/L (96-108); Creatinine Clr Calc Pharmacy 84.2; Estimated Glomerular Filt Rate > 60; Glucose Random 83 mg/dL (60-115); Lipase 26 U/L (8-78); Sodium 139 mmol/L (135-145)
--- NOTE | 2024-05-02 20:53 | PC.NURSE ---
NO ANSWER FROM WR AT 2049
== END 2024-05-02 21:26 | disposition left against medical advice (07) ==
LOC: HO.ED 21:23
PROVIDERS: Physician Assistant; Emergency Provider Emergency Medicine
DX: H53.9 Unspecified visual disturbance (principal); M54.2 Cervicalgia; H54.62 Unqualified visual loss, left eye, normal vision right eye
CPT/HCPCS: 36415; 70450; 80053; 83690; 85025; 85610; 99281; 99284

== ENCOUNTER → 2024-05-02 14:32 | Outpatient (BNV) | payer MEDICARE, SELFPAY | PROVIDERS: Visit Provider Radiology Diagnostic Radiology | DX: M54.2 Cervicalgia (principal); H54.7 Unspecified visual loss | CPT/HCPCS: 70450 ==